=== PATIENT | male | born 1970 | race Caucasian/White ===

== ENCOUNTER 2020-05-13 09:21 | Emergency (ER) | payer OTHER ==
[~2020-05-13] VITALS: Ht 160 cm; Wt 85.7 kg
[2020-05-13] MEDS ORDERED: CARAFATE1 GM PO (12:36)
[2020-05-13] MEDS ORDERED: PEPCID AC20 MG PO (12:36)
== END 2020-05-13 12:56 | disposition home or self-care (01) ==
LOC: ER 09:21
DX: K29.70 Gastritis, unspecified, without bleeding (principal)

== ENCOUNTER 2020-10-15 09:22 | Emergency (ER) | payer OTHER ==
[~2020-10-15] VITALS: Ht 167.6 cm; Wt 85.7 kg
[~2020-10-15 09:22] MED LIST: CARAFATE1 GM PO; PEPCID AC20 MG PO
[2020-10-15] MEDS ORDERED: VITAMIN D3250 MCG PO (09:31)
[2020-10-15] MEDS ORDERED: SYNJARDY 12.5-1 EACH PO (09:31)
[2020-10-15] MEDS ORDERED: ATORVASTATIN CA40 MG PO (09:31)
[2020-10-15] MEDS ORDERED: LOSARTAN POTAS100 MG PO (09:31)
[2020-10-15] MEDS ORDERED: DOXYCYCLINE HY100 MG PO (11:54)
== END 2020-10-15 12:34 | disposition home or self-care (01) ==
LOC: ER 09:22
DX: L72.0 Epidermal cyst (principal); L02.212 Cutaneous abscess of back [any part, except buttock and flank]; B96.89 Other specified bacterial agents as the cause of diseases classified elsewhere; Z03.818 Encounter for observation for suspected exposure to other biological agents ruled out

== ENCOUNTER 2021-12-01 10:20 | Emergency (ER) | payer OTHER ==
[~2021-12-01] VITALS: Ht 167.6 cm; Wt 88.0 kg
[~2021-12-01 10:20] MED LIST changes: +ATORVASTATIN CA40 MG PO; +DOXYCYCLINE HY100 MG PO; +LOSARTAN POTAS100 MG PO; +SYNJARDY 12.5-1 EACH PO; +VITAMIN D3250 MCG PO
[2021-12-01] MEDS ORDERED: GLIMEPIRIDE2 M1 PO (10:33)
[2021-12-01] MEDS ORDERED: PLAVIX75 MG PO (10:33)
[2021-12-01] MEDS ORDERED: NORFLEX100MG PO (13:03)
[2021-12-01] MEDS ORDERED: DOLOGESIC 500-1 EACH PO (13:03)
== END 2021-12-01 13:39 | disposition home or self-care (01) ==
LOC: ER 10:20
DX: S20.224A Contusion of middle back wall of thorax, initial encounter (principal); S90.32XA Contusion of left foot, initial encounter; W10.9XXA Fall (on) (from) unspecified stairs and steps, initial encounter; Y93.9 Activity, unspecified; Y92.9 Unspecified place or not applicable; Y99.9 Unspecified external cause status; I10 Essential (primary) hypertension; E11.9 Type 2 diabetes mellitus without complications; Z79.84 Long term (current) use of oral hypoglycemic drugs